=== PATIENT | female | born 1955 | race African-American/Black ===

== ENCOUNTER 2018-04-23 22:02 | Emergency (ER) | payer BC ==
[~2018-04-23] VITALS: Ht 157.5 cm; Wt 53.5 kg
[2018-04-23 22:18] VITALS: BP 130/81
--- NOTE | 2018-04-23 22:21 | NUR ---
PT TRIAGED AND GIVEN URINE CUP, SENT TO LOBBY WITH VSS.
[2018-04-23 23:00] LABS: APPEARANCE,URINE CLEAR (CLEAR); BILIRUBIN,URINE NEGATIVE (NEGATIVE); BLOOD, URINE NEGATIVE (NEGATIVE); COLOR,URINE YELLOW (YELLOW); LEUKOCYTE ESTERASE ,URINE TRACE (NEGATIVE); NITRITE, URINE NEGATIVE (NEGATIVE); PH,URINE 7.5 (5.0-9.0); UGLUCOSE NEGATIVE (NEGATIVE)
--- NOTE | 2018-04-23 23:23 | NUR ---
PT AMBULATED TO BED 06.
--- NOTE | 2018-04-23 23:25 | NUR ---
PT PRESENTS TO ED WITH C/O SUPRAPUBIC TENDERNESS SINCE . NO BLEEDING OR DISCAHRGE NOTED. TOOK NAPROSYN AT HOME X 1 WITH NO RELIEF. HX--NONE MEDS---NONE
[2018-04-23 23:59] LABS: RBC,URINE 0-5 (RARE) /HPF (0-5); WBC,URINE 0-5 (RARE) /HPF (0-5)
[2018-04-24] MEDS ORDERED: HYDROcodone/APAP 5/325 MG 1 TAB TAB PO ONE (02:15)
[2018-04-24 02:37] VITALS: BP 128/79
--- NOTE | 2018-04-24 02:37 | NUR ---
Patient discharged with v/s stable. Written and verbal after care instructions given and explained. Patient alert, oriented and verbalized understanding of instructions. Ambulatory with steady gait. All questions addressed prior to discharge. ID band removed. Patient advised to follow up with PMD. Rx of VALIUM, IBUPROFEN, MIRALAX given. Patient educated on indication of medication including possible reaction and side effects. Opportunity to ask questions provided and answered.
== END 2018-04-24 02:37 | disposition home or self-care (01) ==
LOC: MED 22:02
DX: R10.2 Pelvic and perineal pain (principal); M62.838 Other muscle spasm; Z88.5 Allergy status to narcotic agent
CPT/HCPCS: 72192; 81001; 99284

== ENCOUNTER 2019-02-05 12:29 | Emergency (ER) | payer SELFPAY ==
[~2019-02-05] VITALS: Ht 157.5 cm; Wt 55.0 kg
[2019-02-05 12:35] VITALS: BP 145/93
--- NOTE | 2019-02-05 12:55 | NUR ---
63/F TO ED WITH C/O L SIDED TINGLING ALSO REPORTING THAT RT EYE FEELS "HEAVY" NO FACIAL DROOP NOTED. [employer] EQUAL BILATERALLY. NO FACIAL ASYMMETRY NOTED. DENIES INJURY/TRAUMA. IN BED FOR MD CORDERO.
--- NOTE | 2019-02-05 13:15 | NUR ---
Dr. Israel is evaluating the patient at bedside.
--- NOTE | 2019-02-05 13:49 | NUR ---
Patient taken to CT scan via wheelchair by tech.
[2019-02-05 15:29] VITALS: BP 139/84
--- NOTE | 2019-02-05 15:29 | NUR ---
Patient discharged with v/s stable. Written and verbal after care instructions given and explained. Patient verbalized understanding. Ambulatory with steady gait. All questions addressed prior to discharge. Advised to follow up with PMD.
== END 2019-02-05 15:29 | disposition home or self-care (01) ==
LOC: MED 12:29
DX: R20.2 Paresthesia of skin (principal); R51 Headache; F43.9 Reaction to severe stress, unspecified; I10 Essential (primary) hypertension; Z98.890 Other specified postprocedural states; Z88.5 Allergy status to narcotic agent
CPT/HCPCS: 70450; 93005

== ENCOUNTER 2021-02-17 10:16 | Emergency (ER) | payer OTHER ==
[~2021-02-17] VITALS: Ht 157.5 cm; Wt 59.0 kg
[2021-02-17 10:24] VITALS: BP 144/79
--- NOTE | 2021-02-17 10:55 | NUR ---
65 y/o female pt presents to er with c/o mo that radiates to neck and left side of the face for 3 days. pt states she feels tingling sensation in her lips. denies n/v/d, syncope, fall or injury. skin intact warm/pink/dry. denies cp, sob, cough, fever or chills. denies anyone sick in household. hr even and regular. even and symmetrical respirations, lung bases clear. pt states pain is 8/10 at this time. pmh: denies nka med: tylenol around 0700 this morning
[2021-02-17] MEDS ORDERED: IBUPROFEN 400 MG TAB PO ONE (11:30)
[2021-02-17] MEDS ORDERED: NAPR-1704 PO (11:35)
[2021-02-17 11:53] VITALS: BP 144/79
--- NOTE | 2021-02-17 11:53 | NUR ---
Patient discharged with v/s stable. Written and verbal after care instructions given and explained. Patient alert, oriented and verbalized understanding of instructions. Ambulatory with steady gait. All questions addressed prior to discharge. ID band removed. Patient advised to follow up with PMD. Rx of naproxen (sent) given. Patient educated on indication of medication including possible reaction and side effects. Opportunity to ask questions provided and answered.
== END 2021-02-17 11:53 | disposition home or self-care (01) ==
LOC: MED 10:16
DX: R51.9 Headache, unspecified (principal); M54.2 Cervicalgia; G47.00 Insomnia, unspecified; Z88.5 Allergy status to narcotic agent; Z98.890 Other specified postprocedural states; Z79.899 Other long term (current) drug therapy
CPT/HCPCS: 99282

== ENCOUNTER 2022-02-27 12:33 | Emergency (ER) | payer OTHER ==
[~2022-02-27] VITALS: Ht 157.5 cm; Wt 57.4 kg
[~2022-02-27 12:33] MED LIST: NAPR-1704 PO
[2022-02-27 12:36] VITALS: BP 123/77
--- NOTE | 2022-02-27 12:39 | NUR ---
PT RECEIVED, CARE ASSUMED. PT A/OX4. PT PRESENTS SELF TO ER WITH C/O RIGHT THIGH PAIN. PT DENIES ANY INJURY. NO DEFORMATIES. NO SWELLING. AWAITING TO BE SEEN BY
[2022-02-27] MEDS ORDERED: ACETAMINOPHEN EXTRA STRENGTH 500 MG TAB PO ONE (13:00)
[2022-02-27] MEDS ORDERED: KETOROLAC 30 MG/ML VIAL IM ONE (13:00)
[2022-02-27] MEDS ORDERED: CYCL-654 PO (15:00)
[2022-02-27] MEDS ORDERED: METH4TAB27 PO (15:00)
[2022-02-27] MEDS ORDERED: NAPR-54 PO (15:00)
[2022-02-27] MEDS ORDERED: ACET-10509 PO (15:00)
--- NOTE | 2022-02-27 15:11 | NUR ---
Patient discharged with v/s stable. Written and verbal after care instructions given and explained. Patient alert, oriented and verbalized understanding of instructions. Ambulatory with steady gait. All questions addressed prior to discharge. ID band removed. Patient advised to follow up with PMD. Rx of FLEXERIL given. Patient educated on indication of medication including possible reaction and side effects. Opportunity to ask questions provided and answered.
== END 2022-02-27 15:11 | disposition home or self-care (01) ==
LOC: MED 12:33
DX: M54.16 Radiculopathy, lumbar region (principal); Z88.5 Allergy status to narcotic agent
CPT/HCPCS: 96372; 99283; J1885